=== PATIENT | male | born 1970 | race Caucasian/White ===

== ENCOUNTER 2021-12-04 21:25 | Emergency (ER) | payer MEDICAID, SELFPAY ==
[2021-12-04 21:32] VITALS: BP 187/86; PULSE 100; O2SAT 97
--- NOTE | 2021-12-04 21:41 | ED.OVERDOSE ---
HPI - Overdose General Chief Complaint: Overdose Stated Complaint: overdose Time Seen by Provider: 12/04/21 21:32 History of Present Illness HPI Narrative: Patient was snoring cocaine and heroin tonight. When unconscious. He claims it is the 1st time he used heroin. Patient was given Narcan multiple doses by EMS. Woken up. He has no distress at this time. No shortness of breath no dizziness no nausea no vomiting. Patient received his coronavirus vaccine x2. Does not want detox at this time. Has no symptoms on arrival to the emergency department. Related Data Allergies Allergy/AdvReac Type Severity Reaction Status Date / Time No Known Allergies Allergy Verified 12/04/21 21:43 Review of Systems Review of Systems: No fever no chills no cough no congestion or upper respiratory symptoms no diaphoresis All system reviewed otherwise negative Yes all other systems are reviewed and are negative ON LICENSE OF [facility] Past Medical History Attestation statement: The following information was validated with the patient. Physical Exam Vital Signs: Vital Signs: Last Vital Signs Pulse 77 12/04/21 21:46 BP 153/88 H 12/04/21 21:46 Pulse Ox 95 12/04/21 22:30 BMI result Body Mass Index 31.8 Appearance: Alert. Oriented X3. No acute distress. Eyes: Pupils equal, round and reactive to light. ENT: Pharynx normal. Neck: Normal inspection. Neck supple. No lymph nodes noted. No crepitus CVS: Normal heart rate and rhythm. Pulses normal. Normal S1 and S2 Respiratory: No respiratory distress. Breath sounds normal. No Wheezing. No rales Abdomen: Soft and nontender. No rigidity. No distention. good BS x4 Skin: Skin warm and dry. Normal skin color. Normal skin turgor. Extremities: No lower extremity edema. Neurovascular intact to all extremities. No Lacerations. No Rash Neuro: Oriented X 3. No motor deficit. No sensory deficit. Moving all extermities. No slurred speech MDM - Overdose MDM Narrative Medical decision making narrative: Well-appearing no acute distress. Patient is now awake alert oriented. Explained to patient the need to stop using heroin. Will monitor patient for full 2 hours after Narcan. Will discharge patient home with a take-home Narcan kit. Patient refused to talk to detox. Does not want detox this time. Discharge Plan Discharge Clinical Impression: Opioid abuse Patient Disposition: Home, Self-Care Instructions: Polysubstance Abuse (ED), Opioid Use Disorder (ED) Additional Instructions: Please stop using heroin and go to detox. Referrals: [facility] [Physician] - 2 days
[2021-12-04 21:46] VITALS: BP 153/88; PULSE 77; O2SAT 96; BMI 31.8
--- NOTE | 2021-12-04 21:52 | HO.SUDE ---
CARE Team met with pt to offer SUDE and substance use resources. Pt declined SUDE and resources stating this was my first time using, I'm all set.
[2021-12-04 22:30] VITALS: O2SAT 95
[2021-12-04] MEDS: Naloxone HCl Nasal TAKE HOME 4 MG SPRAY NOSTRILALT (22:31)
== END 2021-12-04 23:12 | disposition home or self-care (01) ==
LOC: HO.ED 23:01
PROVIDERS: Emergency Provider Emergency Medicine Emergency Medical Services
DX: F11.10 Opioid abuse, uncomplicated (principal)
CPT/HCPCS: 99283; 99284